=== PATIENT | male | born 1965 | race Caucasian/White ===

== ENCOUNTER 2021-04-02 05:34 | Outpatient (CLI) | payer BC ==
[~2021-04-02] VITALS: Ht 188 cm; Wt 98.9 kg
[~2021-04-02 05:34] MED LIST: OXYC1TAB87 PO
== END 2021-04-03 13:26 | disposition home or self-care (01) ==
LOC: PREOP 05:34
PROVIDERS: ATTEND Surgery
DX: Z01.818 Encounter for other preprocedural examination (principal)